=== PATIENT | female | born 1985 | race Caucasian/White ===

== ENCOUNTER 2020-07-02 04:32 | Inpatient (IN) | payer OTHER ==
[~2020-07-02] VITALS: Ht 144.8 cm; Wt 107.0 kg
[2020-07-02] MEDS ORDERED: DULOXETINE HCL30 MG PO (06:34)
--- NOTE | 2020-07-02 06:41 | NUR ---
[facility] RAPID COVID TEST DONE PER ORDER. COVID TEST COLLECTED FROM BOTH NARES. LEFT SIDE HAD BLOCKAGE. RIGHT SIDE WAS GOOD. PT TOLERATED FAIR.
--- NOTE | 2020-07-02 08:20 | NUR ---
07/02/20 0820 Misa Quinn 0813 PATIENT ARRIVES TO [facility] ROOM 101 AWAKE. RESP EVEN AND UNLABORED, ROOM AIR SATS >96%. DENIES PAIN OR NAUSEA. 0818 PATIENT AWAKE, BABY TO BEDSIDE. RESP EVEN AND UNLABORED, ROOM AIR SATS >96%. CONTINUES TO DENY PAIN AND NAUSEA.
--- NOTE | 2020-07-03 13:21 | PR ---
[facility] [address] [facility] [place], [place] [address] Signed PP Progress Notes Datetime Report Generated by CPN: 07/03/2020 13:21 SUBJECTIVE: [id number] Pain: Within Normal Limits Nausea/Vomiting: Denies Vital Signs: [id number] Vital Signs: Reviewed; Within Normal Limits Notable Details: PP Hgb/Hct = 9.7/30.0 EXAM: Ongoing Abdomen/Uterus: Normal Lochia: Normal Extremities: Normal Incision: Normal IMPRESSION/PLAN/PROCEDURES: [id number] Impression: Normal Progression Other Impression: Anemia Plan: Continue Present Management Procedures: None Progress Notes: Doing well, without complaint, tolerating food well, voiding without difficulty. Increase activity as tolerated. Signing Physician: Melissa Garcia MD Copies: ~ *Electronically Signed* 07/03/20 1321 MELISSA GARCIA MD PATIENT NAME: JORDYN LINARES PROGRESS NOTE DATE OF : 89 PHYSICIAN: MELISSA GARCIA MD RPT #: [id number] REPORT IS CONFIDENTIAL AND NOT TO BE RELEASED WITHOUT AUTHORIZATION
--- NOTE | 2020-07-04 08:47 | PR ---
[facility] [address] [facility] [place], [place] [address] Signed PP Progress Notes Datetime Report Generated by CPN: 07/04/2020 08:47 SUBJECTIVE: [id number] Pain: Within Normal Limits Nausea/Vomiting: Present Flatus: Yes Bowel Movement: No Vital Signs: [id number] Vital Signs: Reviewed; Within Normal Limits Notable Details: PP Hgb/Hct = 9.7/30.0 EXAM: Ongoing Abdomen/Uterus: Normal Lochia: Normal Extremities: Normal Incision: Normal Exam Comments: Abdomen soft, nondistended, normal bowel sounds IMPRESSION/PLAN/PROCEDURES: [id number] Impression: Normal Progression Other Impression: Anemia Plan: Continue Present Management Procedures: None Progress Notes: Continue with fluids but decrease solid food, increase activity, Zofran as needed. Will continue monitoring, expect bowel function to return shortly. Signing Physician: Melissa Garcia MD Copies: ~ *Electronically Signed* 07/04/20 0847 MELISSA GARCIA MD PATIENT NAME: JORDYN LINARES PROGRESS NOTE DATE OF : 89 PHYSICIAN: MELISSA GARCIA MD RPT #: [id number] REPORT IS CONFIDENTIAL AND NOT TO BE RELEASED WITHOUT AUTHORIZATION
--- NOTE | 2020-07-04 10:13 | OR ---
[facility] [address] [place] [id number] Signed DATE OF OPERATION: 07/02/2020 SURGEON: Aren Cole MD Patient of Dr. Cole. PREOPERATIVE DIAGNOSES: distress with bradycardia, meconium and active labor. POSTOPERATIVE DIAGNOSES: distress with bradycardia, meconium and active labor, posterior presentation. Possible occult cord prolapse. PROCEDURE: Emergency low transverse segment primary section, delivery of a live male . PRIMER ASSEMBLER: Dr. Hendrix. ANESTHESIA: Epidural. ESTIMATED BLOOD LOSS: 500 mL. COMPLICATIONS: None. DRAINS: Motta to bladder. FINDINGS: Live male infant, Apgars 8 and 9. Weight 7 pounds 8 ounces. Moderate meconium. Normal tubes and ovaries bilateral. DESCRIPTION OF PROCEDURE: The patient was brought into the operating room, placed in supine position. The patient already had epidural, which was re-dosed quickly and the patient already had Motta catheter in place, so the patient was rapidly prepped and draped in usual sterile Electronically Signed By: AREN COLE MD 07/04/20 1013 PATIENT NAME: JORDYN LINARES OPERATIVE REPORT DATE OF : 89 REPORT #: [id number] PHYSICIAN: AREN COLE MD PCP: MEL BARNEY REPORT IS CONFIDENTIAL AND NOT TO BE RELEASED WITHOUT AUTHORIZATION [address] [place], [place] [address] Signed fashion. A Pfannenstiel skin incision was made with a scalpel and extended through the subcutaneous tissue with the scalpel and finger dissection. The fascia was nicked with scalpel and extended in transverse fashion using curved scissors. The underlying abdominal musculature was bluntly and sharply from the fascia above and below the incision. The abdominal musculature was bluntly along the midline along with the peritoneum. The Manolo self-retaining retractor was inserted into the incision and tightened in place. The lower uterine segment was carefully nicked with scalpel and extended in transverse fashion using finger dissection. Meconium fluid and cord came out of the incision. The was noted to be in ROP presentation. The infant's head easily delivered from the incision. The rest of the infant was easily delivered from the incision and the cord doubly clamped and cut. The infant passed off the table in fair condition to the awaiting nurse. Cord gases were obtained and then the placenta manually removed. Uterine cavity explored with a lap pad to remove any retained membranes. An angle stitch of 0-Monocryl suture was placed at one end of the incision and a 2nd running locking stitch of 0-Monocryl starting at the other end used to close the incision. A 2nd running stitch of 0 Monocryl was used to imbricate the 1st layer. Good hemostasis was noted. The entire pelvis was irrigated, suctioned, examined, and noted to have several superficial bleeding spots in the lower uterine segment. These were cauterized with the Bovie. There was still some slight oozing and no particular bleeding spots, so the lower uterine segment was sprinkled with Adria, which did seem to control any further bleeding. The Manolo self-retaining retractor was removed from the incision and a sheet of ACell placed over the lower uterine segment to help with healing. The anterior wall peritoneum was closed using running stitch of 2-0 Vicryl suture. The abdominal musculature was reapproximated using interrupted stitches of 0 Vicryl suture. The abdominal musculature irrigated, suctioned, examined and any bleeding spots cauterized with the Bovie. Again, there were several areas of oozing, but no particular bleeding spots, so the remainder of the Adria was sprinkled over the abdominal musculature and good hemostasis was noted. Powdered ACell sprinkled over the abdominal musculature after this to help with healing, good hemostasis was noted. The fascia was then closed using two running stitches of 0 Vicryl suture meeting in the midline. Subcutaneous tissue was irrigated, suctioned, examined, and any bleeding spots were cauterized with Bovie. Subcutaneous tissue was then closed using interrupted stitches of 3-0 Vicryl suture and the skin reapproximated using skin clips. The patient tolerated the procedure well and went to the recovery room in good condition. Cord gases were sent to the lab. Sponge, needle, and instrument counts were correct at the end of the procedure. Aren Cole MD Electronically Signed By: AREN COLE MD 07/04/20 1013 PATIENT NAME: JORDYN LINARES OPERATIVE REPORT DATE OF : 89 REPORT #: [id number] PHYSICIAN: AREN COLE MD PCP: MEL BARNEY REPORT IS CONFIDENTIAL AND NOT TO BE RELEASED WITHOUT AUTHORIZATION [address] [address] Signed [facility] /[id number] Copies: ~ Electronically Signed By: AREN COLE MD 07/04/20 1013 PATIENT NAME: JORDYN LINARES OPERATIVE REPORT DATE OF : 89 REPORT #: [id number] PHYSICIAN: AREN COLE MD PCP: MEL BARNEY REPORT IS CONFIDENTIAL AND NOT TO BE RELEASED WITHOUT AUTHORIZATION
--- NOTE | 2020-07-04 13:06 | PR ---
[facility] [address] [facility] [place], [place] [address] Signed PP Progress Notes Datetime Report Generated by CPN: 07/04/2020 13:06 SUBJECTIVE: [id number] Pain: Within Normal Limits Nausea/Vomiting: Denies Flatus: Yes Bowel Movement: Yes Vital Signs: [id number] Vital Signs: Reviewed; Within Normal Limits Notable Details: PP Hgb/Hct = 9.7/30.0 EXAM: Ongoing Abdomen/Uterus: Normal Lochia: Normal Extremities: Normal Incision: Normal Exam Comments: Abdomen soft, nondistended, normal bowel sounds IMPRESSION/PLAN/PROCEDURES: [id number] Impression: Normal Progression Other Impression: Anemia Plan: Discharge Procedures: None Progress Notes: Feeling much better, no more nausea or vomiting after bowel movement x2. Wants to go home. Signing Physician: Melissa Garcia MD Copies: ~ *Electronically Signed* 07/04/20 1306 MELISSA GARCIA MD PATIENT NAME: JORDYN LINARES PROGRESS NOTE DATE OF : 89 PHYSICIAN: MELISSA GARCIA MD RPT #: [id number] REPORT IS CONFIDENTIAL AND NOT TO BE RELEASED WITHOUT AUTHORIZATION
== END 2020-07-04 13:45 | disposition home or self-care (01) | DRG 787 ==
LOC: FBCO 04:32 → FBC 05:27
PROVIDERS: ADMIT General Practice; ATTEND General Practice
PROC: 00HU33Z Insertion of Infusion Device into Spinal Canal, Percutaneous Approach (ICD-10-PCS; 2020-07-02)
PROC: 3E0R3BZ Introduction of Anesthetic Agent into Spinal Canal, Percutaneous Approach (ICD-10-PCS; 2020-07-02)
PROC: 10D00Z1 Extraction of Products of Conception, Low, Open Approach (ICD-10-PCS; principal; 2020-07-02 07:00)
DX: O76 Abnormality in fetal heart rate and rhythm complicating labor and delivery (principal); O99.324 Drug use complicating childbirth; O77.0 Labor and delivery complicated by meconium in amniotic fluid; Z3A.39 39 weeks gestation of pregnancy; Z37.0 Single live birth; Z20.822 Contact with and (suspected) exposure to COVID-19; O99.344 Other mental disorders complicating childbirth; F41.9 Anxiety disorder, unspecified; O90.81 Anemia of the puerperium; D64.9 Anemia, unspecified; O99.214 Obesity complicating childbirth; E66.9 Obesity, unspecified; F12.90 Cannabis use, unspecified, uncomplicated; Z79.899 Other long term (current) drug therapy
CPT/HCPCS: 01961; 36415; 82803; 85027; A9270; C9803; J2001; J2250; J2274; J2405; J2590; J2765; J2795; J3010; J7121; U0003